=== PATIENT | female | born 1980 | race Caucasian/White ===

== ENCOUNTER 2019-09-02 16:41 | Inpatient (IN) | payer BC, OTHER ==
[~2019-09-02] VITALS: Ht 157.5 cm; Wt 77.7 kg
[2019-09-02] MEDS ORDERED: SODIUM CHLORIDE 0.9% 1,000 ML IVB ONE (17:10)
[2019-09-02] MEDS ORDERED: KETOROLAC TROMETH 15 mg/ml 1ML VL IV ONE ×2 (17:15→19:45)
[2019-09-02] MEDS ORDERED: SODIUM CHLORIDE 0.9% 1,000 ML IV ONE (17:15)
[2019-09-02 18:39] LABS: Basophils # (auto) 0 uL; Basophils % (auto) 0.2 % (0.0-2.0); Eosinophils # (auto) 0.1 uL; Eosinophils % (auto) 0.5 % (0.0-7.0); Hematocrit 44.7 % (36.0-46.0); Hemoglobin 15.1 g/dL (12.2-16.2); Lymphocytes # (auto) 3.3 uL; Lymphocytes % (auto) 17.2 % (10.0-50.0); Mean Corpuscular Hemoglobin 31.5 pg (28.0-32.0); Mean Corpuscular Hgb Conc. 33.8 g/dL (32.0-36.0); Monocytes # (auto) 1.3 uL; Monocytes % (auto) 6.6 % (0.0-12.0); Neutrophils # (auto) 14.5 uL; Neutrophils % (auto) 75.5 % (37.0-80.0); Nucleated Red Blood Cells % 0.1 %; Platelet Count (auto) 355 10^3/uL (140-450); Red Blood Cells 4.81 10^6/uL (4.0-5.20); Red Cell Distribution Width 12.9 % (11.8-14.3); White Blood Cell 19.2 10^3/uL (4.4-10.8)
[2019-09-02 18:58] LABS: Albumin 3.7 g/dL (3.4-5.0); Calcium 9.1 mg/dL (8.5-10.1); Magnesium 2.2 mg/dL (1.6-2.6)
[2019-09-02 19:01] LABS: Urine Bacteria NONE SEEN /hpf (None Seen); Urine Blood Negative /uL (Negative); Urine Hyaline Cast FEW /lpf (0 - 2); Urine Mucus FEW (None Seen); Urine Specific Gravity 1.007 (1.001-1.035); Urine WBC 3 /hpf (0 - 5)
[2019-09-02 19:01] LABS: Lactic Acid w/Reflex 2.8 mmol/L (0.4-2.0)
[2019-09-02 19:02] LABS: BUN/Creatinine Ratio 10.1; Bilirubin, Total 0.4 mg/dL (0.2-1.0); Total Protein 7.6 g/dL (6.4-8.2)
[2019-09-02 19:23] LABS: INR 0.96 (0.9-1.15); Partial Thromboplastin Time 25.3 sec (23.64-32.05)
[2019-09-02] MEDS ORDERED: cefTRIAXone 1GM/50ML D5W 50 ML IV ONE (19:45)
[2019-09-03] VITALS (8 sets, daily range): BP systolic 112–137; BP diastolic 67–105
[2019-09-03] MEDS ORDERED: TEMAZEPAM 15 MG CAP PO PRN (00:30)
[2019-09-03] MEDS ORDERED: ALBUTEROL SULF 2.5 MG/0.5ML(0.5%) NEB SOLN NEB PRN ×2 (00:30→16:15)
[2019-09-03] MEDS ORDERED: ONDANSETRON HCL 4 MG/2 ML VIAL IV PRN (00:30)
[2019-09-03] MEDS ORDERED: guaiFENesin-DM 100/10mg/5ml SYR PO PRN (01:00)
[2019-09-03] MEDS ORDERED: methylPREDNISolone SOD SUCC 125 MG/2 ML VL IV ONE (01:15)
--- NOTE | 2019-09-03 02:00 | NUR ---
MS admit from ER BEBETO MEDINA admitted to [facility]. Patient oriented to Inga syed RN, unit, room, bed, and unit policies regarding patient care and visiting hours. Patient weighed by bedscale and encouraged to call if they need something. All questions and concerns addressed, patient verbalized understanding.
[2019-09-03] MEDS: HYDROcodone-ACET 5/325MG TAB PO PRN ×3 (02:20→21:39)
[2019-09-03] MEDS ORDERED: LISI-283 PO (03:38)
[2019-09-03] MEDS ORDERED: PREG150C PO (03:38)
[2019-09-03] MEDS ORDERED: LORA-622 PO (03:39)
[2019-09-03] MEDS ORDERED: CYCL5TAB PO (03:39)
[2019-09-03] MEDS ORDERED: ATE50T PO (03:40)
[2019-09-03] MEDS ORDERED: TRAM50TA2 PO (03:40)
--- NOTE | 2019-09-03 07:13 | NUR ---
CLOSING PATIENT RESTING IN BED. CALL LIGHT WITHIN REACH. CARE ENDORSED TO DAYSHIFT RN
[2019-09-03] MEDS: IPRATROPIUM BROM 0.5 MG/2.5ML INH SOL NEB SCH ×2 (07:55→12:15)
[2019-09-03] MEDS: methylPREDNISolone SOD SUCC 125 MG/2 ML VL IV SCH ×2 (09:05→21:39)
[2019-09-03] MEDS: cefTRIAXone 1GM/50ML D5W 50 ML IV SCH (09:05)
[2019-09-03] MEDS: FAMOTIDINE 20 MG TAB PO SCH ×2 (09:06→21:39)
[2019-09-03] MEDS: ATENOLOL 50 MG TAB PO SCH (09:06)
[2019-09-03] MEDS: ACETAMINOPHEN 325 MG TAB PO PRN (16:03)
--- NOTE | 2019-09-03 16:06 | NUR ---
DR PURCELL AT BED SIDE DISCUSSING POC WITH PATIENT AND (GERONIMO). NEW ORDERS RECEIVED. WILL CARRY OUT.
[2019-09-03] MEDS ORDERED: AZITHROMYCIN 500MG/ 250ML 250 ML IV SCH (16:15)
[2019-09-03] MEDS ORDERED: IPRATROPIUM BROM 0.5 MG/2.5ML INH SOL NEB PRN (16:15)
[2019-09-03] MEDS ORDERED: ACETYLCYSTEINE 10 %(100MG/ML) SOL 4ML NEB PRN (16:15)
--- NOTE | 2019-09-03 18:17 | NUR ---
PT ASSESSED FOR PRN MED NEB TX. SPO2 98% ON RA, HR 75. PT DENIES ANY RESPIRATORY DISTRESS. NO TX INDICATED. PT IS AWARE TO HAVE RT PAGED IF TX NEEDED.
--- NOTE | 2019-09-03 19:30 | NUR ---
OPENING NOTE REPORT RECEIVED FROM DAY SHIFT RN PATIENT IS A/OX4 RESTING IN BED. NO S/S OF DISTRESS AT THIS TIME.POC DISCUSSED AND ALL QUESTIONS ANSWERED. WILL MONITOR Q1H PRN THROUGHOUT SHIFT, CALL LIGHT WITHIN REACH.
[2019-09-04 05:25] LABS: Basophils # (auto) 0 uL; Basophils % (auto) 0.1 % (0.0-2.0); Eosinophils # (auto) 0 uL; Hematocrit 41.4 % (36.0-46.0); Hemoglobin 14.5 g/dL (12.2-16.2); Lymphocytes # (auto) 1.7 uL; Lymphocytes % (auto) 8.9 % (10.0-50.0); Mean Corpuscular Hemoglobin 32.3 pg (28.0-32.0); Mean Corpuscular Hgb Conc. 35.1 g/dL (32.0-36.0); Mean Corpuscular Volume 92.1 fL (80.0-100.0); Monocytes # (auto) 0.7 uL; Monocytes % (auto) 3.6 % (0.0-12.0); Neutrophils % (auto) 87.4 % (37.0-80.0); Platelet Count (auto) 378 10^3/uL (140-450); Red Cell Distribution Width 12.9 % (11.8-14.3); White Blood Cell 19.5 10^3/uL (4.4-10.8)
[2019-09-04 05:38] VITALS: BP 143/86
[2019-09-04 05:46] LABS: Potassium 4.7 mmol/L (3.5-5.1)
[2019-09-04 05:54] LABS: BUN/Creatinine Ratio 15.5; Calcium 8.8 mg/dL (8.5-10.1); Magnesium 2.3 mg/dL (1.6-2.6)
[2019-09-04] MEDS: ACETAMINOPHEN 325 MG TAB PO PRN (06:38)
--- NOTE | 2019-09-04 06:38 | NUR ---
PAIN PATIENT HAS LEFT FLANK PAIN 01/28. PATIENT ONLY WANTS TYLENOL FOR PAIN. EDUCATED PATIENT THAT NORCO IS STRONGER AND WOULD HELP ALLEVIATE THE PAIN MORE, PATIENT STILL WANTS TYLENOL
--- NOTE | 2019-09-04 06:59 | NUR ---
CLOSING PATIENT IS RESTING IN BED, NO SIGNS OF DISTRESS, CALL LIGHT WITHIN REACH WILL ENDORSE CARE TO AM SHIFT RN
--- NOTE | 2019-09-04 07:30 | NUR ---
Opening Shift Note Assumed care of patient, awake and alert. No S/S of distress/SOB or pain. Bed is low, locked with 2x side rails up. Call light is within reach. Instructed on POC and to call for assist PRN, will continue to monitor for changes Q1hr and PRN.
[2019-09-04] MEDS: cefTRIAXone 1GM/50ML D5W 50 ML IV SCH (09:03)
[2019-09-04] MEDS: ATENOLOL 50 MG TAB PO SCH (09:04)
[2019-09-04] MEDS: FAMOTIDINE 20 MG TAB PO SCH (09:04)
[2019-09-04] MEDS: methylPREDNISolone SOD SUCC 125 MG/2 ML VL IV SCH (09:04)
[2019-09-04 09:12] VITALS: BP 123/73
[2019-09-04] MEDS ORDERED: LEVOFLOXACIN 500MG 100 ML IV ONE (09:30)
[2019-09-04 11:10] VITALS: BP 123/73
--- NOTE | 2019-09-04 12:42 | NUR ---
Discharge instructions given as ordered. Encourage to follow up with PMD as instructed. Patient given prescription. All questions and concerns addressed. Patient verbalized understanding. IV removed with catheter intact, pressure dressing applied. Patient taken to vehicle via wheelchair with all personal belongings, accompanied by staff and family member. No distress noted at time of departure.
[2019-09-04 17:00] VITALS: BP 134/78
== END 2019-09-04 12:40 | disposition home or self-care (01) | DRG 194 ==
LOC: EDBD 16:41 → ER 16:41 → OVERFLOW 16:42 → WEST WING 09-03 01:45
PROVIDERS: ADMIT Nurse Practitioner; ATTEND Internal Medicine
DX: J18.9 Pneumonia, unspecified organism (principal); E87.2 Acidosis; E66.9 Obesity, unspecified; F17.210 Nicotine dependence, cigarettes, uncomplicated; I10 Essential (primary) hypertension; J20.9 Acute bronchitis, unspecified; J45.909 Unspecified asthma, uncomplicated; M79.7 Fibromyalgia; M54.9 Dorsalgia, unspecified; Z82.49 Family history of ischemic heart disease and other diseases of the circulatory system; Z90.710 Acquired absence of both cervix and uterus; D72.829 Elevated white blood cell count, unspecified
CPT/HCPCS: 36415; 71045; 74176; 80048; 80053; 81001; 83605; 83735; 85025; 85610; 85730; 87040; 87804; 94640; 96361; 96365; 96367; 96375; G0378; J0696; J1956

== ENCOUNTER 2022-05-09 09:43 | Emergency (ER) | payer BC ==
[~2022-05-09] VITALS: Ht 157.5 cm; Wt 83.1 kg
[~2022-05-09 09:43] MED LIST: ATE50T PO; CYCL-837 PO; LISI-283 PO; LORA-622 PO; PREG150C PO; TRAM50TA2 PO
[2022-05-09 10:04] VITALS: BP 148/100
[2022-05-09] MEDS ORDERED: AZIT1POW PO (14:36)
[2022-05-09] MEDS ORDERED: METH4PAK PO (14:36)
== END 2022-05-09 14:50 | disposition home or self-care (01) ==
LOC: ER 09:43
DX: J20.9 Acute bronchitis, unspecified (principal); J02.9 Acute pharyngitis, unspecified; Z88.6 Allergy status to analgesic agent; Z91.040 Latex allergy status
CPT/HCPCS: 71046; 93005

== ENCOUNTER 2023-12-30 16:15 | Emergency (ER) | payer BC ==
[~2023-12-30] VITALS: Ht 154.9 cm; Wt 68.1 kg
[~2023-12-30 16:15] MED LIST changes: +AZIT1POW PO; +METH4PAK PO
[2023-12-30] MEDS: SODIUM CHLORIDE 0.9% 1,000 ML IV ONE ×2 (17:30→19:01)
[2023-12-30 18:16] LABS: Basophils # (auto) 0 10 ^3/uL (0-0.2); Basophils % (auto) 0.5 % (0.0-2.0); Eosinophils # (auto) 0.2 10 ^3/uL (0-0.8); Eosinophils % (auto) 1.6 % (0.0-7.0); Hematocrit 45.1 % (36.0-46.0); Hemoglobin 15.9 g/dL (12.2-16.2); Lymphocytes # (auto) 4.1 10 ^3/uL (0.4-5.4); Lymphocytes % (auto) 38.9 % (10.0-50.0); Mean Corpuscular Hemoglobin 33.4 pg (28.0-32.0); Mean Corpuscular Hgb Conc. 35.2 g/dL (32.0-36.0); Mean Corpuscular Volume 94.9 fL (80.0-100.0); Monocytes # (auto) 1.3 10 ^3/uL (0-1.3); Neutrophils # (auto) 4.9 10 ^3/uL (1.6-8.6); Nucleated Red Blood Cells % 0.2 %; Red Blood Cells 4.76 10^6/uL (4.0-5.20); Red Cell Distribution Width 13.2 % (11.8-14.3); White Blood Cell 10.5 10^3/uL (4.4-10.8)
[2023-12-30 18:35] LABS: Alanine Aminotransferase 38 U/L (7-40); Albumin 4.8 g/dL (3.2-4.8); Alkaline Phosphatase 85 U/L (46-116); Anion Gap 7 (5-15); Aspartate Aminotransferase 18 U/L (13-40); BUN/Creatinine Ratio 11.2 (10.0-20.0); Blood Urea Nitrogen 12 mg/dL (9-23); Calcium 10.1 mg/dL (8.5-10.1); Carbon Dioxide 27 mmol/L (20-30); Chloride 107 mmol/L (98-107); Glucose 98 mg/dL (74-106); Sodium 141 mmol/L (136-145)
[2023-12-30 18:36] LABS: Bilirubin, Total 0.3 mg/dL (0.2-1.0); Total Protein 7.2 g/dL (5.7-8.2)
[2023-12-30] MEDS ORDERED: METR-344 PO (21:19)
[2023-12-30 22:52] LABS: Urine Bacteria None Seen /hpf (None Seen)
[2023-12-30 23:00] VITALS: PULSE 58; RESP 16; O2SAT 100
[2023-12-30 23:10] LABS: Urine Blood Negative /uL (Negative); Urine Clarity Clear (Clear); Urine Color Light-Yellow (Yellow); Urine Mucus FEW (None Seen); Urine Protein, UAD 1+ (Negative); Urine Urobilinogen Normal (Negative); Urine WBC 3 /hpf (0 - 5); Urine pH 5.5 (5.0-9.0)
[2023-12-31] MEDS: IBUPROFEN 600 MG TAB PO ONE (01:06)
[2023-12-31] MEDS: ONDANSETRON HCL 4 MG/2 ML VIAL IV ONE (01:07)
[2023-12-31 01:45] VITALS: BP 98/68; PULSE 58; RESP 16; TEMP 97.3; O2SAT 100
== END 2023-12-31 00:48 | disposition short-term general hospital (02) ==
LOC: ER 16:15 → EDBD 16:15 → ER 12-31 00:48
DX: K52.9 Noninfective gastroenteritis and colitis, unspecified (principal); N39.0 Urinary tract infection, site not specified; J45.909 Unspecified asthma, uncomplicated; I10 Essential (primary) hypertension; F17.210 Nicotine dependence, cigarettes, uncomplicated; Z79.899 Other long term (current) drug therapy; Z90.710 Acquired absence of both cervix and uterus; Z90.49 Acquired absence of other specified parts of digestive tract; Z91.040 Latex allergy status; Z88.5 Allergy status to narcotic agent
CPT/HCPCS: 36415; 74176; 80053; 81001; 82010; 85025; 93005; 96361; 96374; 99285; J2405; J7030